=== PATIENT | female | born 1950 | race Two or more races ===

== ENCOUNTER 2019-09-15 20:23 | Inpatient (IN) | payer BC, OTHER ==
[~2019-09-15] VITALS: Ht 157.5 cm; Wt 55.5 kg
[2019-09-15 21:16] LABS: BASOPHIL % 0.4 % (0-2); PLATELET COUNT 283 x10^3mcL (130-400)
[2019-09-15 21:29] LABS: rbc morphology (normal/abnorm) ABNORMAL (NORMAL)
[2019-09-15 21:55] LABS: BILIRUBIN TOTAL 0.6 mg/dL (0.20-1.00); CALCIUM 7.5 mg/dL (8.5-10.1); CARBON DIOXIDE 15.7 mmol/L (21-32); POTASSIUM SERUM 4.6 mmol/L (3.5-5.1); TOTAL PROTEIN, SERUM 7.8 g/dL (6.4-8.2)
[2019-09-15 22:02] LABS: ALBUMIN 3.2 g/dL (3.4-5.0)
[2019-09-15 22:04] LABS: CREATININE SERUM 14.9 mg/dL (0.6-1.0)
[2019-09-15 23:14] VITALS: BP 195/96
[2019-09-15 23:21] VITALS: Ht 157.5 cm; Wt 55.5 kg
[2019-09-16] VITALS (10 sets, daily range): BP systolic 123–1473; BP diastolic 60–89
[2019-09-16 00:43] LABS: CHOLESTEROL/HDL RATIO 3.7
[2019-09-16 06:26] LABS: BASOPHIL % 0.6 % (0-2); PLATELET COUNT 227 x10^3mcL (130-400)
[2019-09-16 06:44] LABS: CALCIUM 7.3 mg/dL (8.5-10.1); CARBON DIOXIDE 13.2 mmol/L (21-32); MAGNESIUM 2.7 mg/dL (1.8-2.4)
[2019-09-16 07:29] LABS: CREATININE SERUM 15.1 mg/dL (0.6-1.0)
[2019-09-16 07:30] LABS: PHOSPHOROUS 12.4 mg/dL (2.5-4.9)
[2019-09-16 07:41] LABS: RED CELL DISTRIBUTION WIDTH 16.8 % (11.5-14.5)
[2019-09-16 08:42] LABS: POTASSIUM SERUM 5.7 mmol/L (3.5-5.1)
[2019-09-16 09:12] LABS: RED BLOOD CELLS 2.44 M/mm3 (4.10-5.10)
[2019-09-16 10:00] LABS: rbc morphology (normal/abnorm) ABNORMAL (NORMAL); tear drop cell (dacryocyte) 1+
[2019-09-16 10:09] LABS: UA SPECIFIC GRAVITY 1.025 (1.005-1.035); microscopic required? YES; urine erythrocyte 1+ (NEGATIVE)
[2019-09-16 10:16] LABS: IRON 25 ug/dL (50-170)
[2019-09-16 10:33] LABS: AMPHETAMINE QUAL UR NONE DETECTED (See below)
[2019-09-16 10:33] LABS: TOTAL IRON BINDING CAPACITY 189 ug/dL (250-450)
[2019-09-17] VITALS (9 sets, daily range): BP systolic 145–181; BP diastolic 53–76
[2019-09-17 08:51] LABS: CALCIUM 7.6 mg/dL (8.5-10.1); CARBON DIOXIDE 29.6 mmol/L (21-32); POTASSIUM SERUM 3.5 mmol/L (3.5-5.1)
[2019-09-17 09:02] LABS: CREATININE SERUM 7.4 mg/dL (0.6-1.0)
[2019-09-17 13:03] LABS: BASOPHIL % 0.4 % (0-2); PLATELET COUNT 206 x10^3mcL (130-400)
[2019-09-17 13:04] LABS: RED CELL DISTRIBUTION WIDTH 16.7 % (11.5-14.5)
[2019-09-17 13:11] LABS: rbc morphology (normal/abnorm) ABNORMAL (NORMAL); tear drop cell (dacryocyte) 1+
[2019-09-18] VITALS (7 sets, daily range): BP systolic 153–182; BP diastolic 65–81
[2019-09-18 06:45] LABS: CALCIUM 8.1 mg/dL (8.5-10.1); CARBON DIOXIDE 27.8 mmol/L (21-32); POTASSIUM SERUM 3.6 mmol/L (3.5-5.1)
[2019-09-18 06:50] LABS: BASOPHIL % 0.8 % (0-2); PLATELET COUNT 209 x10^3mcL (130-400)
[2019-09-18 07:41] LABS: CREATININE SERUM 4.9 mg/dL (0.6-1.0)
[2019-09-18 10:01] LABS: MAGNESIUM 1.8 mg/dL (1.8-2.4); PHOSPHOROUS 4.8 mg/dL (2.5-4.9)
[2019-09-19 06:13] VITALS: BP 162/68
[2019-09-19 06:30] LABS: BASOPHIL % 0.8 % (0-2); PLATELET COUNT 225 x10^3mcL (130-400)
[2019-09-19 06:48] LABS: CALCIUM 7.5 mg/dL (8.5-10.1); CARBON DIOXIDE 23.6 mmol/L (21-32); POTASSIUM SERUM 3.9 mmol/L (3.5-5.1)
[2019-09-19 07:02] LABS: CREATININE SERUM 6.6 mg/dL (0.6-1.0)
[2019-09-19 07:13] LABS: RED CELL DISTRIBUTION WIDTH 16.2 % (11.5-14.5)
[2019-09-19 08:26] VITALS: BP 176/71
[2019-09-19 12:49] VITALS: BP 150/60
[2019-09-19 18:19] VITALS: BP 118/52
[2019-09-19 19:53] VITALS: BP 127/53
[2019-09-20 05:35] VITALS: BP 151/68
[2019-09-20 06:37] LABS: BASOPHIL % 0.4 % (0-2); PLATELET COUNT 230 x10^3mcL (130-400)
[2019-09-20 06:53] VITALS: BP 144/79
[2019-09-20 06:53] LABS: CARBON DIOXIDE 30.8 mmol/L (21-32); POTASSIUM SERUM 4.1 mmol/L (3.5-5.1)
[2019-09-20 06:55] LABS: CREATININE SERUM 4.1 mg/dL (0.6-1.0)
[2019-09-20 07:13] LABS: RED CELL DISTRIBUTION WIDTH 15.9 % (11.5-14.5)
[2019-09-20 07:58] VITALS: BP 160/61
[2019-09-20 08:06] LABS: microalbumin:creatinine ratio 4752.6 (0.0-30.0)
[2019-09-20] MEDS ORDERED: NOR5 PO (09:42)
[2019-09-20] MEDS ORDERED: FER300 PO (09:42)
[2019-09-20] MEDS ORDERED: CARVEDILOL12.5 M1 PO (09:42)
[2019-09-20] MEDS ORDERED: NEP PO (09:43)
[2019-09-20] MEDS ORDERED: COL100 PO (09:43)
[2019-09-20] MEDS ORDERED: PHOS PO (09:43)
[2019-09-20 09:53] VITALS: BP 160/61
== END 2019-09-20 11:50 | disposition home or self-care (01) | DRG 280 ==
LOC: ED 20:23 → DU 22:25 → MU 22:25 → EDBEDREQ 22:26 → DU 23:00 → MU 09-18 20:18
PROVIDERS: Emergency Medicine; General Practice; Internal Medicine; Surgery; ADMIT Family Medicine
PROC: 30233N1 Transfusion of Nonautologous Red Blood Cells into Peripheral Vein, Percutaneous Approach (ICD-10-PCS; 2019-09-16)
PROC: 02HV33Z Insertion of Infusion Device into Superior Vena Cava, Percutaneous Approach (ICD-10-PCS; 2019-09-16)
PROC: B548ZZA Ultrasonography of Superior Vena Cava, Guidance (ICD-10-PCS; 2019-09-16)
PROC: 5A1D70Z Performance of Urinary Filtration, Intermittent, Less than 6 Hours Per Day (ICD-10-PCS; 2019-09-16)
PROC: 5A1D70Z Performance of Urinary Filtration, Intermittent, Less than 6 Hours Per Day (ICD-10-PCS; 2019-09-17)
PROC: 02HV33Z Insertion of Infusion Device into Superior Vena Cava, Percutaneous Approach (ICD-10-PCS; 2019-09-19)
PROC: B5181ZA Fluoroscopy of Superior Vena Cava using Low Osmolar Contrast, Guidance (ICD-10-PCS; 2019-09-19)
PROC: B548ZZA Ultrasonography of Superior Vena Cava, Guidance (ICD-10-PCS; 2019-09-19)
PROC: 5A1D70Z Performance of Urinary Filtration, Intermittent, Less than 6 Hours Per Day (ICD-10-PCS; 2019-09-19)
PROC: 0JH60XZ Insertion of Tunneled Vascular Access Device into Chest Subcutaneous Tissue and Fascia, Open Approach (ICD-10-PCS; principal; 2019-09-19 16:00)
DX: I13.2 Hypertensive heart and chronic kidney disease with heart failure and with stage 5 chronic kidney disease, or end stage renal disease (principal); J96.01 Acute respiratory failure with hypoxia; I21.A1 Myocardial infarction type 2; I50.31 Acute diastolic (congestive) heart failure; N18.6 End stage renal disease; I16.1 Hypertensive emergency; E44.0 Moderate protein-calorie malnutrition; E87.1 Hypo-osmolality and hyponatremia; N17.9 Acute kidney failure, unspecified; E87.5 Hyperkalemia; D63.1 Anemia in chronic kidney disease; E87.8 Other disorders of electrolyte and fluid balance, not elsewhere classified; Z68.22 Body mass index [BMI] 22.0-22.9, adult
CPT/HCPCS: 36600; 83880; 86580; A4301; G0378; J0360; J0690; J0885-EC; J1170; J1642; J1644; J1940; J2001; J2060; J2250; J2405; J3010; J3490; J7030; J7040; J7050; P9016; Q0092; Q0163